=== PATIENT | male | born 1955 ===

== ENCOUNTER 2020-11-29 18:16 | Emergency (ER) | payer SELFPAY | END 2020-11-29 19:30 | disposition left against medical advice (07) | LOC: ER 18:16 | DX: S61.459A Open bite of unspecified hand, initial encounter (principal); Z53.21 Procedure and treatment not carried out due to patient leaving prior to being seen by health care provider; W54.0XXA Bitten by dog, initial encounter; Y93.89 Activity, other specified; Y92.89 Other specified places as the place of occurrence of the external cause; Y99.8 Other external cause status ==